=== PATIENT | male | born 1960 | race Caucasian/White ===

== ENCOUNTER → 2020-04-23 09:27 | Outpatient (REF) | payer MEDICAID, SELFPAY ==
--- NOTE | 2020-04-23 09:30 | CA_ITS ---
Transthoracic Echocardiogram Patient (Last, First, Middle): Maco Aguirre, Gender: Male Date of : 1960 Age: 59 Procedure Date: 04/23/2020 Procedure Type: Transthoracic Echocardiogram Location: OP Height: 160.02 cm Weight: 72.58 kg BSA: 1.76 m2 Heart Rate: bpm BP: 124 / 60 mmHg Electromechanical Technologist: JAILYN Holden MD: Radha Sargent MD Sales Development Coordinator: Rui Ordoñez MD Symptoms: R42 DIZZINESS GIDDINESS, Study Quality: Good ECG Rhythm: Sinus Conclusions: - Essentially normal study Findings Left Ventricle Normal left ventricular size, thickness, and systolic function. The visually estimated ejection fraction is between 65-70%. Diastolic function is normal for age. Right Ventricle Normal right ventricular cavity size and systolic function. Atria Both atria are normal in size. There is no evidence of interatrial shunt. Aortic Valve Normal aortic valve structure and function. There is no aortic valve stenosis. There is no aortic valve regurgitation. Mitral Valve Normal mitral valve structure and function. There is trace mitral valve regurgitation. There is no mitral valve stenosis. Pulmonic Valve The pulmonic valve is likely normal. Tricuspid Valve Normal tricuspid valve structure. There is trace tricuspid valve regurgitation. The right ventricular systolic pressure is normal. The right ventricular systolic pressure is 33 mmHg. Normal right atrial pressure. There is no evidence of pulmonary hypertension. Great Vessels All visible segments of the aorta are normal in size. The pulmonary artery was not well visualized. Venous The inferior vena cava is normal in size and collapses greater than 50% with inspiration. Pericardium/Pleural There is no evidence of pericardial effusion. Prior Study Comparison No prior study available for comparison. Measurements 2D Linear Measurements IVSd: 0.91 0.6-0.9/0.6-1.0 cm LVIDd: 4.64 3.9-5.3/4.2-5.9 cm LVIDd Index: 2.64 2.4-3.2/2.2-3.1 cm/m2 LVIDs: 2.85 2.0-3.6 cm LVPWd: 0.90 0.7-1.1 cm Ao Root: 3.30 2.1-3.5 cm LA Diam: 3.20 2.7-3.8/3.0-4.0 cm LAIDs Index: 1.82 1.5-2.3 cm/m2 LV Mass: 175.05 67-162/88-224 g LV Mass Index: 99.46 43-95/49-115 g/m2 LVOT Diam: 2.10 3.0+(-)1.3 cm 2D Systolic Function EF 4C: 68.90 >55% EF 2C: 69.50 >55% EF BiP: 70.20 >55% Mitral Valve MV Pk E: 1.01 MV PK A: 0.82 MV Decel Time: 259.00 E/A: 1.20 E'Lateral: 9.79 E'Medial: 8.38 E/E' Med: 12.10 E/E' Lat: 10.30 PHT: 76.00 MVA PHT: 2.89 Decel Coleman: 3.91 Aortic Valve AoV Pk James: 1.72 AoV Mn James: 1.20 AoV VTI: 0.38 AoV Pk Grad: 12.00 Aov Mn Grad: 7.00 MYRNA Cont.VTI: 2.71 LVOT LVOT Pk James: 1.67 LVOT Mn James: 0.97 LVOT VTI: 0.30 LVOT Pk Grad: 11.00 LVOT Mn Grad: 5.00 LVOT Diam: 2.10 LVOT Area: 3.46 Diastolic Function MV Pk E: 1.01 MV Pk A: 0.82 E/A: 1.20 E'Medial: 8.38 E/E' Med: 12.10 E' Laterial: 9.79 E/E' Lat: 10.30 Tricuspid Valve TR Pk James: 2.74 TR Pk Grad: 30.00 RA Press: 3.00 RVSP: 33.00 Great Vessels Aorta Ao Root-2D: 3.30 2.0-3.7 cm Ao Asc: 3.30 2.1-3.4 cm Ao Arch: 3.10 Updated in Other Vendor System with Status of Final Rui Ordoñez MD electronically signed on 04/23/2020 5:46:49 PM with status of Final
--- NOTE | 2020-04-23 10:30 | ECG_ITS ---
Hook-up date: 2020-04-23 10:19:00 Duration: 25:29:00 Test Indications: dizziness, giddiness Medications: 53506 QRS complexes * Ventricular ectopics which represent % of total QRS comp. 14 Supraventricular ectopics which represent <1 % of total QRS comp. * Paced QRS complexs which represent % of total QRS comp. VENTRICULAR ECTOPY * Isolated * Bigeminal Cycles * Couplets * Runs * Beats in Runs * Beats LONGEST at * BPM at :: -- * Beats FASTEST at * BPM at :: -- SUPRAVENTRICULAR ECTOPY 12 Isolated 1 Couplets 0 Runs 0 Beats in Runs * Beats LONGEST at * BPM at :: -- * Beats FASTEST at * BPM at :: -- HEART RATES 40 MIN at 08:01:04 2020-04-24 64 AVG 124 MAX at 13:00:54 2020-04-23 LONGEST RR 1.6240 secs at 08:01:01 2020-04-24 S-T LEVELS Channel 1 - 128 mm at 10:19:00 2020-04-23 - 128 mm at 10:19:00 2020-04-23 Channel 2 - 128 mm at 10:19:00 2020-04-23 - 128 mm at 10:19:00 2020-04-23 Channel 3 - 128 mm at 02:93:81 -- - 128 mm at 02:93:81 Basic rhythm Normal sinus rhythm Rare Premature atrial complexes Patient did not report any symptoms in the diary Referred By: Radha Sargent Overread By: STACY FRANCOIS MD
== END ==
LOC: HO.CARD 09:27
PROVIDERS: PCP Family Medicine; Visit Provider Family Medicine
DX: R42 Dizziness and giddiness (principal)
CPT/HCPCS: 93225; 93226; 93306

== ENCOUNTER → 2020-06-22 14:25 | Outpatient (BNV) | payer MEDICAID, SELFPAY | PROVIDERS: PCP Internal Medicine; Visit Provider Internal Medicine | DX: D61.818 Other pancytopenia (principal) | CPT/HCPCS: 99212; 99213; 99214 ==

== ENCOUNTER 2021-02-19 14:27 | Outpatient (REF) | payer MEDICAID, SELFPAY ==
--- NOTE | ~2021-02-19 | US_ITS ---
EXAMINATION: US ABDOMEN COMPLETE CLINICAL INFORMATION: Chronic viral hepatitis C. COMPARISON: Ultrasound abdomen complete 11/03/2018 and 10/16/2014. TECHNIQUE: Real-time imaging of the abdominal viscera. FINDINGS: PANCREAS: The visualized portions of the pancreatic head, neck and body are normal. The pancreatic tail is obscured by bowel gas. ABDOMINAL AORTA: The proximal, mid, and distal segments are normal in caliber. INFERIOR VENA CAVA: Visualized portions are normal. LIVER: The liver has normal size and contour. Liver has chronically hyperechoic, coarse echotexture, unchanged compared to 10/16/2014 and 11/03/2018. No focal liver lesion or intrahepatic bile duct dilatation. GALLBLADDER: Normal. The gallbladder is physiologically distended without evidence of stones, sludge, polyps, wall thickening or pericholecystic fluid. COMMON BILE DUCT: Normal in caliber measuring 0.3 cm in diameter. RIGHT KIDNEY: Normal. No hydronephrosis. No renal calculi or focal parenchymal lesions. The kidney measures 10.9 cm in maximum dimension. LEFT KIDNEY: Normal. No hydronephrosis. No renal calculi or focal parenchymal lesions. The kidney measures 10.1 cm in maximum dimension. SPLEEN: The spleen measures up to 11.9 cm maximum dimension, compared to 14.2 cm on 10/16/2014 and 12.8 cm on 11/03/2018. No focal splenic lesion. FREE FLUID: None. US/US abdomen complete IMPRESSION: In this patient with history of chronic hepatitis, the liver chronically has hyperechoic echotexture. However, there is no surface nodularity. No overt cirrhotic morphology. No liver mass or ascites.
== END 2021-02-19 14:28 | disposition home or self-care (01) ==
LOC: HO.US 14:27
PROVIDERS: Visit Provider Internal Medicine
DX: B18.2 Chronic viral hepatitis C (principal)
CPT/HCPCS: 76700

== ENCOUNTER 2022-10-22 13:49 | Outpatient (REF) | payer MEDICAID, SELFPAY ==
[2022-10-22 16:06] LABS: MANUAL DIFF FLAG NO
[2022-10-22 16:24] LABS: Basophils Percent Auto 0.6 % (0-2); Hematocrit 42.2 % (42.0-52.0); Hemoglobin 13.7 g/dl (14.0-18.0); Imm Gran Abs Auto 0.03 X10*3/uL (0.00-0.03); Imm Gran Pct Auto 0.9 % (0.0-0.4); Lymphocytes Absolute Auto 0.7 X10*3/uL (1.2-4.9); Lymphocytes Percent Auto 21.2 % (20-40); Mean Corpuscular HGB Conc 32.5 g/dl (31.0-36.0); Mean Corpuscular Hemoglobin 29.1 pg (27.0-33.0); Mean Corpuscular Volume 89.8 fL (80.0-98.0); Mean Platelet Volume 10.2 fL (9.4-12.4); Monocytes Absolute Auto 0.2 X10*3/uL (0.1-1.2); Monocytes Percent Auto 5.8 % (2-11); Neutrophils Absolute Auto 2.5 x10*3/uL (2.0-8.3); Neutrophils Percent Auto 71.5 % (45-73); Platelet Count 184 X10*3/uL (160-400); Red Cell Distribution Width 12.1 % (11.0-16.0); White Blood Count 3.5 X10*3/uL (4.8-10.8)
[2022-10-22 16:34] LABS: Estimated Average Glucose 105 mg/dL; Hemoglobin A1c % 5.3 %
[2022-10-22 17:06] LABS: Creatinine Urine 149.99 mg/dL; Microalbum/Creatinine Ratio Ur 3.3 ug/mg cr
[2022-10-22 17:18] LABS: Alanine Aminotransferase 12 U/L (0-40); Albumin Level 4.5 g/dL (3.5-5.0); Alkaline Phosphatase 48 U/L (39-117); Anion Gap 13 (12-20); Aspartate Amino Transferase 18 U/L (5-37); Bilirubin Total 0.7 mg/dL (0.0-1.0); Blood Urea Nitrogen 11 mg/dL (9-16); Carbon Dioxide 29 mmol/L (22-29); Chloride 103 mmol/L (96-108); Cholesterol 218 mg/dL; Estimated Glomerular Filt Rate > 60; Glucose Random 96 mg/dL (60-115); HDL Cholesterol 56 mg/dL; LDL Cholesterol Calculated 142 mg/dl; Potassium 4.1 mmol/L (3.3-5.1); Sodium 141 mmol/L (135-145); Total Protein 7.6 g/dL (6.5-8.0); Triglycerides 104 mg/dL
[2022-10-22 17:22] LABS: Free T4 (Free Thyroxine) 0.83 ng/dL (0.71-1.85)
[2022-10-22 17:33] LABS: Prostate Specific Antigen < 0.10 ng/mL (<0.05-4.0)
[2022-10-24 06:15] LABS: ~HepC Num1 13.44 S/CO (0.00-0.79); ~Hepatitis C Antibody Reactive (Nonreactive)
[2022-10-24 06:24] LABS: HBS Num1 > 1000.00 mIU/mL (0-7.99); HBc Num1 6.66 S/CO (0.00-0.79); HBsAGNum1 0.42 S/CO (0.00-0.99); HIV AB/AG Nonreactive (Nonreactive); HIV Num 1 0.05 S/CO (0.00-0.99); Hepatitis B Surface Antigen Negative (Negative); ~Hepatitis B Surface Antibody REACTIVE (Nonreactive)
[2022-10-24 08:44] LABS: HBc Num2 6.68 S/CO; HBc Num3 6.43 S/CO; Hepatitis B Core Antibody Reactive (Nonreactive)
[2022-10-24 12:08] LABS: Syphilis Screen Nonreactive (Nonreactive)
[2022-10-24 20:53] LABS: TS Negative Control Passed; TS Panel A 0; TS Panel B 2; TS Positive Control Passed; TSpotTB Negative (Negative)
[2022-10-28 12:33] LABS: HCV Log PCR <1.18 NOT DETECTED Log IU/mL (NOT DETECTED); HepC Viral Load <15 NOT DETECTED IU/mL (NOT DETECTED)
== END 2022-10-22 13:50 | disposition home or self-care (01) ==
LOC: HO.HHCL 13:49
PROVIDERS: Visit Provider Student in an Organized Health Care Education/Training Program
DX: Z00.00 Encounter for general adult medical examination without abnormal findings (principal); Z20.2 Contact with and (suspected) exposure to infections with a predominantly sexual mode of transmission; Z11.1 Encounter for screening for respiratory tuberculosis
CPT/HCPCS: 36415; 80053; 80061; 82043; 83036; 84153; 84439; 85025; 86481; 86704; 86706; 86780; 86803; 87340; 87389; 87522

== ENCOUNTER 2022-10-29 10:27 | Outpatient (REF) | payer MEDICAID, SELFPAY ==
--- NOTE | ~2022-10-29 | US_ITS ---
EXAMINATION: US THYROID CLINICAL INFORMATION: History of thyroid nodules. Goiter. COMPARISON: Thyroid ultrasound 10/16/2014. TECHNIQUE: Linear transducer grayscale and color Doppler examination with attention to the region of the thyroid. FINDINGS: SIZE: Measurements of the thyroid lobes and nodules are given in sagittal, anteroposterior and transverse dimensions respectively. Right Thyroid Lobe: 5.0 x 1.7 x 1.6 cm, volume 7.1 mL. Previously 5.3 x 1.5 x 1.5 cm, volume 6.2 mL. Parenchyma: The gland echotexture is homogeneous. Thyroid vascularity is normal. Left Thyroid Lobe: 4.4 x 1.0 x 1.6 cm, volume 3.7 mL. Previously 4.0 x 1.0 x 1.4 cm, volume 2.9 mL. Parenchyma: The gland echotexture is homogeneous. Thyroid vascularity is normal. Isthmus: 0.1 cm in maximum AP dimension. Previously 0.3 cm. No focal thyroid nodule is seen. NODES: No lymphadenopathy is seen in the tissue surrounding the thyroid gland. US/US thyroid IMPRESSION: Homogeneous thyroid gland without a focal nodule. ACR TI-RADS RECOMMENDATION REFERENCE: Ultrasound-guided fine-needle aspiration, followup ultrasound, no further follow up. * TR1 (0 point) and TR2 (2 points): No FNA or follow up * TR3 (3 points): FNA if more than or equal to 2.5 cm in maximum dimension, followup ultrasound in 1, 3 and 5 years if 1.5 to 2.4 cm in maximum dimension. * TR4 (4-6 points): FNA if more than or equal to 1.5 cm in maximum dimension, followup ultrasound in 1, 2, 3 and 5 years if 1 to 1.4 cm in maximum dimension. * TR5 (more than or equal to 7 points): FNA if more than or equal to 1 cm in maximum dimension, followup ultrasound every year for 5 years if 0.5 to 0.9 cm in maximum dimension. * TR3, TR4 or TR5 nodules that are below the size threshold for follow up receive no follow up.
--- NOTE | ~2022-10-29 | US_ITS ---
EXAMINATION: US ABDOMEN COMPLETE CLINICAL INFORMATION: Cirrhosis. COMPARISON: Ultrasound abdomen complete 02/19/2021 and 11/03/2018. TECHNIQUE: Real-time imaging of the abdominal viscera. FINDINGS: PANCREAS: The pancreas is not well seen due to bowel gas. ABDOMINAL AORTA: The mid and most of the distal segments are normal in caliber. The proximal abdominal aorta and the distal portion of the distal abdominal aorta is obscured by bowel gas. INFERIOR VENA CAVA: The inferior cava is not well seen due to bowel gas. LIVER: The liver is normal in size. The liver contour is normal. There is mild diffuse increased liver parenchymal echogenicity, consistent with mild hepatic steatosis. There is slight coarsening of the echotexture of the liver which can be seen with cirrhosis. No focal hepatic lesion. There is no intrahepatic biliary duct dilatation seen. GALLBLADDER: Normal. The gallbladder is physiologically distended without evidence of stones, sludge, polyps, wall thickening or pericholecystic fluid. COMMON BILE DUCT: Normal in caliber measuring 0.4 cm in diameter. RIGHT KIDNEY: Normal. No hydronephrosis. No renal calculi or focal parenchymal lesions. The kidney measures 10.4 cm in maximum dimension. LEFT KIDNEY: Normal. No hydronephrosis. No renal calculi or focal parenchymal lesions. The kidney measures 10.1 cm in maximum dimension. SPLEEN: Normal. The spleen measures 11.1 cm in maximum dimension. FREE FLUID: None. US/US abdomen complete IMPRESSION: 1. Mild hepatic steatosis. 2. Slight coarsening of the echotexture of the liver which can be seen with cirrhosis.
== END 2022-10-29 10:28 | disposition home or self-care (01) ==
LOC: HO.US 10:27
PROVIDERS: Visit Provider Student in an Organized Health Care Education/Training Program
DX: K74.60 Unspecified cirrhosis of liver (principal); E04.2 Nontoxic multinodular goiter
CPT/HCPCS: 76536; 76700

== ENCOUNTER 2023-02-02 15:00 | Outpatient (REF) | payer MEDICAID, SELFPAY ==
--- NOTE | ~2023-02-02 | XR_ITS ---
EXAMINATION: XR SHOULDER, RIGHT CLINICAL INFORMATION: Chronic right shoulder pain. COMPARISON: None available. TECHNIQUE: AP external rotation, Grashey, scapular Y, and axillary views of the right shoulder. FINDINGS: Bony alignment and mineralization are normal. The glenohumeral joint is intact. There is mild osteoarthritic change of the glenohumeral joint. The acromioclavicular and coracoclavicular intervals are normal. No fracture or dislocation is seen. There is no soft tissue calcification or foreign body. No right pneumothorax is seen. XR/XR shoulder RT min 2V IMPRESSION: 1. There is mild osteoarthritic change of the right glenohumeral joint. 2. No fracture or dislocation is seen.
== END 2023-02-02 15:01 | disposition home or self-care (01) ==
LOC: HO.HHCX 15:00
PROVIDERS: Visit Provider Student in an Organized Health Care Education/Training Program
DX: M25.511 Pain in right shoulder (principal)
CPT/HCPCS: 73030

== ENCOUNTER 2023-02-05 09:40 | Outpatient (REF) | payer MEDICAID, SELFPAY ==
[2023-02-05 12:09] LABS: Alanine Aminotransferase 19 U/L (0-40); Albumin Level 4.1 g/dL (3.5-5.0); Alkaline Phosphatase 42 U/L (39-117); Anion Gap 11 (12-20); Aspartate Amino Transferase 16 U/L (5-37); Bilirubin Total 0.3 mg/dL (0.0-1.0); Blood Urea Nitrogen 13 mg/dL (9-16); Calcium 9.5 mg/dL (8.4-10.2); Carbon Dioxide 32 mmol/L (22-29); Chloride 103 mmol/L (96-108); Cholesterol 190 mg/dL (<200); Estimated Glomerular Filt Rate > 60; Glucose Random 96 mg/dL (60-115); HDL Cholesterol 46 mg/dL (>40); LDL Cholesterol Calculated 117 mg/dL (<100); Potassium 4.2 mmol/L (3.3-5.1); Sodium 142 mmol/L (135-145); Total Protein 6.9 g/dL (6.5-8.0); Triglycerides 139 mg/dL (<150)
[2023-02-05 12:23] LABS: TSH reflex Free T4 4.32 uIU/mL (0.32-4.0)
[2023-02-05 12:41] LABS: Folate 11.1 ng/mL (> or = 4.0); Vitamin B12 588 pg/mL (200-900)
[2023-02-05 12:59] LABS: Free T4 (Free Thyroxine) 0.78 ng/dL (0.71-1.85)
[2023-02-05 14:28] LABS: CT PCR NOT DETECTED (Not Detect.); NG PCR NOT DETECTED (Not Detect.)
== END 2023-02-05 09:41 | disposition home or self-care (01) ==
LOC: HO.HHCL 09:40
PROVIDERS: Visit Provider Student in an Organized Health Care Education/Training Program
DX: Z00.00 Encounter for general adult medical examination without abnormal findings (principal); Z11.3 Encounter for screening for infections with a predominantly sexual mode of transmission
CPT/HCPCS: 0353U; 80053; 80061; 82607; 82746; 84439; 84443

== ENCOUNTER 2024-04-21 21:37 | Emergency (ER) | payer MEDICAID, SELFPAY ==
--- NOTE | 2024-04-21 | ECG_ITS ---
Test Reason : CHEST PAIN Blood Pressure : */* mmHG Vent. Rate : 53 BPM Atrial Rate : 53 BPM P-R Int : 174 ms QRS Dur : 108 ms QT Int : 470 ms P-R-T Axes : 52 14 34 degrees QTcB Int : 441 ms Sinus bradycardia Otherwise normal ECG When compared with ECG of 28-Nov-2016 12:08, No significant change was found Referred By: Generic ED Physician Electronically Signed By: GABRIEL ARRIOLA
--- NOTE | ~2024-04-21 | XR_ITS ---
CLINICAL HISTORY: chest pain sob 1 view chest x-ray Comparison: 06/22/2017 Findings: The lungs are clear. Heart size is normal. No acute fracture. IMPRESSION: 1. No acute findings. This document has been electronically signed by: Robbie Wyatt MD on 04/21/2024 22:27:27
[2024-04-21 21:48] VITALS: BP 173/78; PULSE 57; RESP 18; TEMP 36.7; O2SAT 100; BMI 23.3
[2024-04-21 21:53] LABS: Basophils Percent Auto 0.4 % (0-2); Eosinophils Absolute Auto 0.1 X10*3/uL (0.0-0.4); Eosinophils Percent Auto 1.3 % (0-4); Hematocrit 37.4 % (42.0-52.0); Hemoglobin 12.7 g/dl (14.0-18.0); Imm Gran Abs Auto 0.01 X10*3/uL (0.00-0.03); Imm Gran Pct Auto 0.2 % (0.0-0.4); Lymphocytes Absolute Auto 0.8 X10*3/uL (1.2-4.9); Lymphocytes Percent Auto 14.4 % (20-40); MANUAL DIFF FLAG NO; Mean Corpuscular Hemoglobin 29.7 pg (27.0-33.0); Mean Corpuscular Volume 87.6 fL (80.0-98.0); Mean Platelet Volume 9.5 fL (9.4-12.4); Monocytes Absolute Auto 0.3 X10*3/uL (0.1-1.2); Monocytes Percent Auto 5.7 % (2-11); Neutrophils Absolute Auto 4.1 x10*3/uL (2.0-8.3); Platelet Count 152 X10*3/uL (160-400); Red Blood Count 4.27 X10*6/uL (4.60-5.80); Red Cell Distribution Width 12.1 % (11.0-16.0); White Blood Count 5.3 X10*3/uL (4.8-10.8)
[2024-04-21 22:09] LABS: Alanine Aminotransferase 15 U/L (0-40); Albumin Level 4.5 g/dL (3.5-5.0); Alkaline Phosphatase 48 U/L (39-117); Anion Gap 12 (12-20); Aspartate Amino Transferase 23 U/L (5-37); Bilirubin Total 0.4 mg/dL (0.0-1.0); Blood Urea Nitrogen 12 mg/dL (9-16); Calcium 9.5 mg/dL (8.4-10.2); Carbon Dioxide 31 mmol/L (22-29); Chloride 104 mmol/L (96-108); Creatinine Clr Calc Pharmacy 93.8; Estimated Glomerular Filt Rate > 60; Glucose Random 117 mg/dL (60-115); Lipase 12 U/L (8-78); Magnesium 2.3 mg/dL (1.6-2.6); Potassium 4.7 mmol/L (3.3-5.1); Sodium 142 mmol/L (135-145); Total Protein 7.6 g/dL (6.5-8.0)
[2024-04-21 22:17] LABS: Troponin-I High Sensitivity < 2.7 ng/L (<3.5-35.0)
--- NOTE | 2024-04-22 00:12 | ED_ITS ---
HPI - General Adult General Chief complaint: General Medical Stated complaint: dizziness, high bp chest pain Time Seen by Provider: 04/22/24 00:10 Source: patient Mode of arrival: ambulatory Limitations: no limitations History of Present Illness ED Provider: HPI narrative: Patient's history of anxiety depression and hypotension supposed to be on nifedipine 30 mg daily which he has not taking for last 2 years today was feeling funny so we checked the blood pressure it was elevated to 190/155 he took 30 mg of nifedipine at 19:00 no chest pain no shortness a breath patient felt his heart rate was beating fast on arrival heart rate was 57 blood pressure was 173/78 repeat blood pressure was 126/76 patient denied any complaints at this time Related Data Home Medications ?Medication ?Instructions ?Recorded ?Confirmed acetaminophen 325 mg capsule 325 mg PO QID 06/12/20 01/06/23 (Tylenol) cholecalciferol (vitamin D3) 50 50 mcg PO DAILY 06/12/20 01/06/23 mcg (2,000 unit) capsule (Vitamin D3) lithium carbonate 150 mg capsule 150 mg PO BID 06/12/20 01/06/23 nifedipine 30 mg tablet,extended 30 mg PO DAILY 06/12/20 01/06/23 release Previous Rx's ?Medication ?Instructions ?Recorded amlodipine 5 mg tablet 5 mg PO DAILY #30 tabs 04/22/24 Allergies Allergy/AdvReac Type Severity Reaction Status Date / Time No Known Allergies Allergy Verified 04/21/24 21:52 [No Known Allergies*] Review of Systems 2 Review of Systems: Yes all other systems are reviewed and are negative PMFSH Past Medical History Medical History Dyslipidemia Pancytopenia Cirrhosis of liver Mood disorder Multiple thyroid nodules Alcoholism Opioid dependence Hepatitis C Surgical History Hx of appendectomy Family History Family History Mother Heart attack Social History Social History Household Members: None Housing: Apartment Are you a primary field care manager to a significant other at home: No Do you presently have visiting nurse or other home services: No Alcohol intake: former Patient Tobacco Use Status: Never used Tobacco Substance Use Type: Crack/Cocaine Advance Directives: No Do you have a plan to hurt others: No Plan service: No Current occupational status: unemployed Physical Exam ED Vital Signs: Vital Signs - 24 hr 04/21/24 21:48 Temperature 98.1 F Pulse Rate 57 Respiratory Rate 18 Blood Pressure 173/78 H Pulse Oximetry 100 Oxygen Delivery Method Room Air BMI result Body Mass Index 23.3 Appearance: Alert. Oriented X3. No acute distress. Eyes: No pallor or icterus ENT: Pharynx normal. Oral Mucosa moist Neck: Normal inspection. Neck supple. CVS: Normal heart rate and rhythm. Pulses normal. Respiratory: No respiratory distress. Equal air entry bilateral, no wheezing/rales/rhonchi Abdomen: Soft and nontender. Bowel sounds are present, no mass palpable, no CVA tenderness Skin: Skin warm and dry. Normal skin color. Normal skin turgor. Extremities: No lower extremity edema. No calf tenderness Neuro: Oriented X 3. No motor deficit. Medical Decision Making Lab Data MDM Lab Attestation statement: I reviewed the patient's lab results. 04/21/24 21:45 04/21/24 21:45 Labs: Lab Results 04/21/24 Range/Units 21:45 WBC 5.3 (4.8-10.8) X10*3/uL RBC 4.27 L (4.60-5.80) X10*6/uL Hgb 12.7 L (14.0-18.0) g/dl Hct 37.4 L (42.0-52.0) % MCV 87.6 (80.0-98.0) fL MCH 29.7 (27.0-33.0) pg MCHC 34.0 (31.0-36.0) g/dl RDW 12.1 (11.0-16.0) % Plt Count 152 L (160-400) X10*3/uL MPV 9.5 (9.4-12.4) fL Immature Gran % (Auto) 0.2 (0.0-0.4) % Neut % (Auto) 78.0 H (45-73) % Lymph % (Auto) 14.4 L (20-40) % Sully % (Auto) 5.7 (2-11) % Eos % (Auto) 1.3 (0-4) % Baso % (Auto) 0.4 (0-2) % Lymph # (Auto) 0.8 L (1.2-4.9) X10*3/uL Sully # (Auto) 0.3 (0.1-1.2) X10*3/uL Eos # (Auto) 0.1 (0.0-0.4) X10*3/uL Baso # (Auto) 0.0 (0.0-0.2) X10*3/uL Abs Immat Gran (auto) 0.01 (0.00-0.03) X10*3/uL Absolute Neuts (auto) 4.1 (2.0-8.3) x10*3/uL Absolute Nucleated RBC 0.000 (0.0-0.012) X10*3/uL Nucleated RBC % (auto) 0.0 (0.0-0.2) /100WBC Sodium 142 (135-145) mmol/L Potassium 4.7 (3.3-5.1) mmol/L Chloride 104 (96-108) mmol/L Carbon Dioxide 31 H (22-29) mmol/L Anion Gap 12 (12-20) BUN 12 (9-16) mg/dL Creatinine 0.80 (0.5-1.4) mg/dL Estim Creat Clear Calc 93.8 Estimated GFR > 60 Random Glucose 117 H (60-115) mg/dL Calcium 9.5 (8.4-10.2) mg/dL Magnesium 2.3 (1.6-2.6) mg/dL Total Bilirubin 0.4 (0.0-1.0) mg/dL AST 23 (5-37) U/L ALT 15 (0-40) U/L Alkaline Phosphatase 48 (39-117) U/L Troponin I High Sens < 2.7 (<3.5-35.0) ng/L Total Protein 7.6 (6.5-8.0) g/dL Albumin 4.5 (3.5-5.0) g/dL Lipase 12 (8-78) U/L Independent Interpretation I performed an independent interpretation of an: EKG Interpretation: Sinus bradycardia with heart rate of 53 beats per minute normal intervals normal axis no acute ST-T no acute ischemia Discharge Plan Discharge Clinical Impression: Essential hypertension Patient Disposition: Home, Self-Care Instructions: Hypertension (ED) Additional Instructions: Take blood pressure medicine daily and follow up with your PCP Normal blood pressure should be less than 135/85 Start taking amlodipine 2.5 mg daily Stop nifedipine Prescriptions: New amlodipine 5 mg tablet 5 mg PO DAILY Qty: 30 1RF No Action lithium carbonate 150 mg Capsule 150 mg PO BID nifedipine 30 mg Tablet Extended Release 30 mg PO DAILY acetaminophen [Tylenol] 325 mg Capsule 325 mg PO QID cholecalciferol (vitamin D3) [Vitamin D3] 50 mcg (2,000 unit) Capsule 50 mcg PO DAILY Print Language: Malay
[2024-04-22 00:50] VITALS: BP 125/80; PULSE 74; RESP 17; TEMP 36.6; O2SAT 97
[2024-04-22 00:53] VITALS: BP 125/80; PULSE 74; RESP 17; TEMP 36.6; O2SAT 97
== END 2024-04-22 01:03 | disposition home or self-care (01) ==
PROVIDERS: Emergency Provider Internal Medicine
DX: R42 Dizziness and giddiness (principal); R07.89 Other chest pain; I10 Essential (primary) hypertension; Z79.899 Other long term (current) drug therapy
CPT/HCPCS: 36415; 71045; 80053; 83690; 83735; 84484; 85025; 93005; 99284

== ENCOUNTER → 2024-04-21 21:43 | Outpatient (BNV) | payer MEDICAID, SELFPAY | PROVIDERS: Emergency Provider Internal Medicine; Visit Provider Internal Medicine | DX: R00.1 Bradycardia, unspecified (principal) | CPT/HCPCS: 93010 ==

== ENCOUNTER → 2024-04-21 22:05 | Outpatient (BNV) | payer MEDICAID, SELFPAY | PROVIDERS: Visit Provider Specialist | DX: R06.02 Shortness of breath (principal) | CPT/HCPCS: 71045 ==